=== PATIENT | female | born 1985 | race Caucasian/White ===

== ENCOUNTER 2017-12-10 20:00 | Observation (INO) | payer MEDICAID ==
[2017-12-10] MEDS ORDERED: LR 500 ML IV ONE (23:00)
[2017-12-10] MEDS ORDERED: D5W LR 500 ML IV ONE (23:00)
[2017-12-10] MEDS ORDERED: NITROFURANTOIN MACROBID 100 MG CAP PO ONE (23:00)
[2017-12-10] MEDS ORDERED: hydrOXYzine HCL 50 MG TAB PO ONE (23:00)
== END 2017-12-10 23:15 | disposition home or self-care (01) ==
LOC: FLD 20:00 → INTOOBSV 20:00
PROVIDERS: ADMIT Advanced Practice Midwife; ATTEND Advanced Practice Midwife
DX: O48.0 Post-term pregnancy (principal); Z3A.40 40 weeks gestation of pregnancy
CPT/HCPCS: G0378 ×2

== ENCOUNTER 2017-12-11 02:05 | Inpatient (IN) | payer MEDICAID ==
[2017-12-11 03:08] LABS: PLATELET COUNT 177 10^3/uL (150-400)
[2017-12-11] MEDS ORDERED: morphINE PF 5 MG/10 ML INJ ONE (04:22)
[2017-12-11] MEDS ORDERED: fentaNYL 100 MCG/2 ML INJ ONE (04:22)
[2017-12-11] MEDS ORDERED: ceFAZolin 2 GM/DEXTROSE 100 ML IV ONE (04:30)
[2017-12-11] MEDS ORDERED: PHENYLEPHRINE HCL 100 MCG/ML SYR ONE ×2 (05:06→05:33)
[2017-12-11] MEDS ORDERED: ONDANSETRON 4 MG/2 ML VIAL ONE ×2 (05:26)
[2017-12-11] MEDS ORDERED: DEXAMETHASONE 4 MG/ML VIAL ONE ×2 (05:26)
[2017-12-11] MEDS ORDERED: OXYTOCIN 100 UNITS/10 ML VIAL ONE (05:26)
--- NOTE | 2017-12-11 06:16 | PREANESOB ---
Obstetric Pre-Anesthesia Info - General Info Proposed Procedure: C Section : 1 Para: 0 - Info Status: Postmature Monitors: External FHR Baseline (bpm): 120 FHR Pattern: Non-reassuring - Labor Status Magnesium Sulfate in Use: No Section History: Primary Indications for Current Section: Non-reas. Status Labor Epidural: No Anesthesia ROS: Tonsillectomy. Visit Medications: Discontinued Medications Generic Name Dose Route Start Last Admin Trade Name Mingq PRN Reason Stop Dose Admin Dexamethasone Confirm 12/11/17 05:26 Decadron Injection Administered 12/11/17 05:27 Dose 4 mg .ROUTE .STK-MED ONE Dexamethasone Confirm 12/11/17 05:26 Decadron Injection Administered 12/11/17 05:27 Dose 4 mg .ROUTE .STK-MED ONE Fentanyl Confirm 12/11/17 04:22 Sublimaze Administered 12/11/17 04:23 Dose 100 mcg .ROUTE .STK-MED ONE Cefazolin Sodium/Dextrose 100 mls @ 200 mls/hr 12/11/17 04:30 Ancef 2 Gm IV 12/11/17 04:59 ONCE ONE Morphine Sulfate Confirm 12/11/17 04:22 Morphine Pf 5 Mg/10 Ml Administered 12/11/17 04:23 Dose 5 mg .ROUTE .STK-MED ONE Ondansetron HCl Confirm 12/11/17 05:26 Zofran Administered 12/11/17 05:27 Dose 4 mg .ROUTE .STK-MED ONE Ondansetron HCl Confirm 12/11/17 05:26 Zofran Administered 12/11/17 05:27 Dose 4 mg .ROUTE .STK-MED ONE Oxytocin Confirm 12/11/17 05:26 Pitocin Administered 12/11/17 05:27 Dose 100 units .ROUTE .STK-MED ONE Phenylephrine HCl Confirm 12/11/17 05:06 Neosynephrine Administered 12/11/17 05:07 Dose 1,000 mcg .ROUTE .STK-MED ONE Phenylephrine HCl Confirm 12/11/17 05:33 Neosynephrine Administered 12/11/17 05:34 Dose 1,000 mcg .ROUTE .STK-MED ONE - Anesthesia History Response to Local Anesthetics: Normal Anesthesia & Operative History: No Prior Problems Family Anesthesia History: Negative - Social History Substance Use/Abuse: Denies - Vital Signs Blood Pressure: 111/63 Heart Rate: 82 - Focused Exam Neck exam: FROM Mallampati Score: Class 1 Mouth exam: normal dental/mouth exam Pulmonary: no respiratory distress Cardiovascular: regular rate and rhythym Labs: 12/11/17 02:45 Patient ABO/Rh A NEGATIVE 12/11/17 02:45 - Plan Anesthetic Plan: SAB Consent Signed and on Chart: Yes Patient/Guardian Understands and Agrees to Plan: Yes Urgent/Emergent Case: Van garza completed preop but documented later for safe timely pt care
--- NOTE | 2017-12-11 06:17 | POSTANESTH ---
Post Anesthetic Evaluation Cardiovascular Status: Normal, Stable, Similar to Pre-Op Cond Respiratory Status: Normal, Stable, Similar to Pre-op Cond. Level of Consciousness/Mental Status: Can Participate in Eval, Alert and Oriented Pain Control: Adequate, Prn Tx Ordered Nausea/Vomiting Control: Adequate, Prn Tx Ordered Complications Possibly Related to Anesthesia: None Noted
[2017-12-11] MEDS ORDERED: EPSOM SALT 454 GM TP PRN (06:19)
[2017-12-11] MEDS ORDERED: IBUPROFEN 600 MG TAB PO PRN (06:19)
[2017-12-11] MEDS ORDERED: LIDOCAINE 1% 300 MG/30 ML SDV SC PRN (06:19)
[2017-12-11] MEDS ORDERED: LR 1,000 ML IV PRN (06:19)
[2017-12-11] MEDS ORDERED: MISOPROSTOL 200 MCG TAB PR PRN (06:19)
[2017-12-11] MEDS ORDERED: OXYTOCIN/RINGERS LACTATE 1,000 ML IV PRN (06:19)
[2017-12-11] MEDS ORDERED: OLIVE OIL 118 ML BTL MISC PRN (06:19)
[2017-12-11] MEDS ORDERED: TERBUTALINE SULFATE 1 MG/ML VIAL IV PRN (06:19)
[2017-12-11] MEDS ORDERED: POLYETHYLENE GLYCOL 3350 17 GM PKT PO PRN (06:24)
[2017-12-11] MEDS ORDERED: LACTULOSE 20 GM/30 ML UDCUP PO PRN (06:24)
[2017-12-11] MEDS ORDERED: BISACODYL 10 MG SUPP PR PRN (06:24)
[2017-12-11] MEDS ORDERED: MAGNESIUM HYDROXIDE 30 ML UDCUP PO PRN (06:24)
--- NOTE | 2017-12-11 06:29 | OBDEL ---
Info Type: Primary Presentation at Delivery: Vertex L&D Analgesia/Anesthesia Type: Spinal GBS+: No - Infant Care Provider Hydrochloric Area Supervisor/HAZARDOUS WASTE MANAGEMENT SPECIALIST: Sandra Chen - Hospital Course Intrapartum: 12/11/17 06:26 upon admission, thick mec after SROM, nonreassuring tracing with cat II with minimal variability despite IV Fluids with variables with each ctxn. cx 3 cm and was same about 7 hrs prior with labor check. Operative Report - Delivery Pre-op Diagnoses: IUP at 40+ wks with thick meconium and non-reassuring status Post-op Diagnoses: same History of Prior Section: No Nulliparous Prior to Delivery: Yes Indications for Current Section: Non-reas. Status Procedure: Unscheduled, Low Transverse Surgeon: Lesli Bowie Oxyacetylene Cutter: Lisbet Mcintosh Anesthesiologist: Jon Shah Complications: None Findings: thick meconium with strong odor upon hysterotomy. uterus returned to good tone and vigorous massage - some retained membrane fragments removed from ant wall. No NC noted. baby vigorous after delivery and given one minute of delayed cord clamping. bulb suction after baby began crying. prominent sacral promontory noted. double layer closure. UOP concentrated but no blood IV Fluid (ml): 2,500 EBL: [address] [place] Data DEVON: 12/06/17 Gestational Age: 40 week(s) and 5 day(s) Beck Delivery Date: 12/11/17 Delivery Time: 05:07 Sex of Infant: Female Score (1 Min): 8 Score (5 Min): 9 ICD10 Worksheet Patient Problems: Problems Problem Status Onset Thick meconium stained amniotic fluid Acute intolerance to labor, delivered, current hospitalization Acute S/P primary low transverse Acute
[2017-12-11] MEDS ORDERED: NALOXONE HCL 0.4 MG/ML INJ IVP PRN (08:16)
[2017-12-11] MEDS ORDERED: ONDANSETRON 4 MG/2 ML VIAL IVP PRN (08:16)
[2017-12-11] MEDS ORDERED: PHENYLEPHRINE HCL 100 MCG/ML SYR IVP PRN (08:16)
[2017-12-11] MEDS ORDERED: KETOROLAC 30 MG/1 ML SDV ONE (08:39)
[2017-12-11] MEDS: KETOROLAC 30 MG/1 ML SDV IVP SCH ×3 (08:43→21:31)
[2017-12-11] MEDS: SENNOSIDES/DOCUSATE SODIUM TAB PO SCH ×2 (14:28→21:32)
--- NOTE | 2017-12-11 16:01 | OBPP ---
Progress Note Assessment/Plan: Assessment: pod# 0 s/p PLTCS for non reassring status remote from delivery breast feeding anemia Plan: routine post operative care 12/11/17 15:59 Subjective/ Course: 12/11/17 16:00 patient is doing well. pain is well controlled. tolerating diet. normal lochia/ denies headache and changes in vision. breast feeding is going well Objective: 12/11/17 02:45 Patient ABO/Rh A NEGATIVE 12/11/17 07:30 Temp Pulse Resp BP Pulse Ox 36.6 C 65 16 98/51 L 94 12/11/17 13:20 12/11/17 13:20 12/11/17 13:20 12/11/17 13:20 12/11/17 13:20 Physical Exam - Physical Exam Neck: non-tender, full range of motion, supple Respiratory: chest non-tender, lungs clear, normal breath sounds Cardiac/Chest: normal peripheral pulses, regular rate, rhythm Abdomen: normal bowel sounds, non-tender, soft Extremities: normal range of motion, non-tender, normal inspection, normal capillary refill Skin: normal color, warm/dry, other (incision clean dry and intact) Neuro/Psych: no motor/sensory deficits, alert, normal mood/affect, oriented x 3
[2017-12-12] MEDS: KETOROLAC 30 MG/1 ML SDV IVP SCH (03:36)
[2017-12-12] MEDS: SENNOSIDES/DOCUSATE SODIUM TAB PO SCH ×2 (09:50→20:31)
[2017-12-12] MEDS: IBUPROFEN 600 MG TAB PO PRN ×3 (09:51→22:10)
[2017-12-12] MEDS: HYDROCODONE/APAP 5/325 TAB PO PRN ×2 (12:39→18:11)
--- NOTE | 2017-12-12 12:57 | OBPP ---
Progress Note Assessment/Plan: Assessment: [id number] s/p primary c/s POD#1 Plan: routine post op care cont / support ambulate PRN anticipate d/c home in 24-48 hours Subjective/ Course: 12/11/17 16:00 patient is doing well. pain is well controlled. tolerating diet. normal lochia/ denies headache and changes in vision. breast feeding is going well 12/12/17 Pt doing well, reports pain but improves with ibuprofen. She reports min bleeding. She is ambulating and voiding without difficulty. Family members @ BS - supportive Objective: 12/12/17 05:15 Patient ABO/Rh A NEGATIVE 12/11/17 07:30 Temp Pulse Resp BP Pulse Ox 36.9 C 76 18 97/56 L 97 12/12/17 05:00 12/12/17 05:00 12/12/17 05:00 12/12/17 05:00 12/12/17 05:00 Uterine Position/Fundal Height: Umbilicus -1, Midline Uterine Tone: Firm Physical Exam - Physical Exam General Appearance: WD/WN, alert, no apparent distress Respiratory: lungs clear, normal breath sounds Cardiac/Chest: regular rate, rhythm Abdomen: non-tender, soft, incision (healing well, steristrips present) Skin: normal color, warm/dry Neuro/Psych: alert, normal mood/affect, oriented x 3
[2017-12-13] MEDS: IBUPROFEN 600 MG TAB PO PRN ×2 (04:38→10:05)
[2017-12-13] MEDS: SENNOSIDES/DOCUSATE SODIUM TAB PO SCH (09:35)
--- NOTE | 2017-12-13 10:48 | OBPP ---
Progress Note Assessment/Plan: Assessment: 1) s/p 1LTCS secondary to intolerance to labor POD # 2 - pt is stable 2) Anemia - pt is asymptomatic 3) Rh negative Plan: Plan for d/c home today Instructions reviewed with pt Rx given for [place] and Motrin Cont PNV and iron Pelvic rest RTC in 2, 4 and 6 weeks for pp visit 12/13/17 10:48 Subjective/ Course: 12/11/17 16:00 patient is doing well. pain is well controlled. tolerating diet. normal lochia/ denies headache and changes in vision. breast feeding is going well 12/12/17 Pt doing well, reports pain but improves with ibuprofen. She reports min bleeding. She is ambulating and voiding without difficulty. Family members @ BS - supportive 12/13/17 10:48 Pt seen and examined. Doing well with no complaints. Pain well controlled with po meds. Mod lochia. Pt is OOB, mariah regular diet, voiding and BM x 1. Denies any f/c/n/v/CP or SOB. BF well without difficulty. Wants to go home today. Objective: 12/12/17 05:15 Patient ABO/Rh A NEGATIVE 12/11/17 07:30 Temp Pulse Resp BP Pulse Ox 37.1 C 73 16 105/67 96 12/12/17 20:00 12/12/17 20:00 12/12/17 20:00 12/12/17 20:00 12/12/17 16:14 Uterine Position/Fundal Height: Umbilicus -2 Uterine Tone: Firm Physical Exam - Physical Exam General Appearance: WD/WN, alert, no apparent distress Respiratory: lungs clear, normal breath sounds Cardiac/Chest: regular rate, rhythm Abdomen: normal bowel sounds, non-tender, soft, flatus (+), incision (C/D/I with steri strips, well approximated) Extremities: non-tender, normal inspection Skin: normal color, warm/dry Neuro/Psych: alert, normal mood/affect, oriented x 3
--- NOTE | 2017-12-13 10:51 | OBGCSDC ---
General Delivery Information - General Info : 1 Para: 1 Abortions: 0 Type: Primary L&D Analgesia/Anesthesia Type: Spinal Admission Date: 12/11/17 Labs: Patient ABO/Rh A NEGATIVE 12/11/17 07:30 Hct 26.4 % (38.0-47.0) L 12/12/17 05:15 - Hospital Course Intrapartum: 12/11/17 06:26 upon admission, thick mec after SROM, nonreassuring tracing with cat II with minimal variability despite IV Fluids with variables with each ctxn. cx 3 cm and was same about 7 hrs prior with labor check. : 12/11/17 16:00 patient is doing well. pain is well controlled. tolerating diet. normal lochia/ denies headache and changes in vision. breast feeding is going well 12/12/17 Pt doing well, reports pain but improves with ibuprofen. She reports min bleeding. She is ambulating and voiding without difficulty. Family members @ BS - supportive 12/13/17 10:48 Pt seen and examined. Doing well with no complaints. Pain well controlled with po meds. Mod lochia. Pt is OOB, mariah regular diet, voiding and BM x 1. Denies any f/c/n/v/CP or SOB. BF well without difficulty. Wants to go home today. - Delivery Providers Surgeon: Lesli Bowie Box Blank Machine Operator: Lisbet Mcintosh Anesthesiologist: Jon Shah - Delivery Indications for Current Section: Non-reas. Status Surgical Procedures: Unscheduled, Low Transverse Intra-op Complications: None EBL: [address] [place] Data DEVON: 12/06/17 Gestational Age: 41 week(s) and 0 day(s) Beck Delivery Date: 12/11/17 Delivery Time: 05:07 Sex of Infant: Female [place] Weight (gm): 3034 kg Score (1 Min): 8 Score (5 Min): 9 Discharge Information - Discharge Information Condition: Good Instruction/Follow Up: Two Weeks, Four Weeks, Six Weeks
[2017-12-13 11:03] VITALS: BP 110/73
== END 2017-12-13 12:45 | disposition home or self-care (01) | DRG 540 ==
LOC: FLD 02:05 → FOB 09:43
PROVIDERS: ADMIT Advanced Practice Midwife; ATTEND Obstetrics & Gynecology
PROC: 10D00Z1 Extraction of Products of Conception, Low, Open Approach (ICD-10-PCS; principal; 2017-12-11)
PROC: 3E0234Z Introduction of Serum, Toxoid and Vaccine into Muscle, Percutaneous Approach (ICD-10-PCS; principal; 2017-12-11)
DX: O76 Abnormality in fetal heart rate and rhythm complicating labor and delivery (principal); O77.0 Labor and delivery complicated by meconium in amniotic fluid; O90.81 Anemia of the puerperium; O26.893 Other specified pregnancy related conditions, third trimester; Z67.91 Unspecified blood type, Rh negative; Z3A.40 40 weeks gestation of pregnancy; Z37.0 Single live birth
CPT/HCPCS: J0690; J1100; J1885; J2274; J2370; J2405; J2590; J3010